=== PATIENT | male | born 1990 | race Caucasian/White ===

== ENCOUNTER → 2024-02-01 | Outpatient (CLI) | payer OTHER ==
[2024-02-04 09:16] LABS: HEPATITIS B SURFACE ANTIGEN Negative (Negative)
[2024-02-04 09:50] LABS: HIV 1,2 COMBO ANTIGEN/ANTIBODY Negative (Negative)
[2024-02-04 10:14] LABS: HEPATITIS C AB CIA INTERP Negative (Negative); HEPATITIS C ANTIBODY CIA INDEX <0.02 IV
[2024-02-05 05:36] LABS: APTIMA MEDIA TYPE Urine; C. TRACHOMATIS BY TMA Negative (Negative); N. GONORRHOEAE BY TMA Negative (Negative); SPECIMEN SOURCE Urine; T. VAGINALIS BY TMA Negative (Negative)
== END ==
LOC: LAB 16:09 → LAB SHORT 16:09
PROVIDERS: Registered Nurse Community Health
DX: Z11.3 Encounter for screening for infections with a predominantly sexual mode of transmission (principal); Z20.2 Contact with and (suspected) exposure to infections with a predominantly sexual mode of transmission
CPT/HCPCS: 86592; 86803; 87340; 87389; 87491; 87591; 87661